=== PATIENT | female | born 1950 | race Caucasian/White ===

== ENCOUNTER 2022-05-27 11:09 | Emergency (ER) | payer OTHER, SELFPAY ==
[2022-05-27 11:16] VITALS: BP 151/71; PULSE 75; RESP 18; TEMP 36.7; O2SAT 97
--- NOTE | 2022-05-27 11:41 | ED.GENADUL_ITS ---
Discharge Plan Disposition Patient Disposition: HOME Condition: Improving Discharge Details Clinical Impression: Left-sided Maciel's palsy ED Provider: Giuseppe Carrasco Home Meds and New Rx's Prescriptions: New clindamycin HCl 300 mg capsule 300 mg PO Q6H 7 Days Qty: 28 0RF valacyclovir 1 gram tablet 1,000 mg PO BID 7 Days Qty: 14 0RF bacitracin 500 unit/gram ointment 1 applic topical Q8H 7 Days Qty: 14 0RF Rx Instructions: To left peroiorbital prednisone 10 mg tablet 10 mg PO DAILY Qty: 49 0RF Rx Instructions: 30 mg twice a day for 3 days, then 20 mg twice a day for 3 days, then 10 mg twice a day for 3 days, then 10 mg daily for 3 days and stop. Discharge Instructions Instructions: Maciel Palsy (ED) Additional Instructions: Please follow-up with your regular doctor in [place]. Please take the medications as prescribed. May use eye shield at night for comfort. May use lubricating drops to left eye. Return to the ER for any acute concerns while in the area. Medical Decision Making 72-year-old female who is visiting family in the town [facility]. She notes having an infection of the left preseptal periorbital region in January which was treated successfully with clindamycin. She noted yesterday recurrent left eyelid erythema for which she started Polytrim. This morning she felt her face was swollen and noticed forehead she and lip drooping. She did not have a headache. No difficulty with speech or gait. On exam patient has a Maciel's palsy. This is consistent with peripheral nerve involvement. Cannot rule out slight left periorbital cellulitis. Discussed with her that we will treat with valacyclovir and prednisone. She may use bacitracin to the left periorbital area and I will place her on a course of cli ndamycin given her concern for underlying cellulitis. She will follow-up with her regular doctor for recheck in [place]. HPI General Mode of arrival: ambulatory . Date/Time Provider Initiated Documentation: 05/27/22 11:21 . Limitations to Documentation: no limitations . Information obtained by: patient . History of Present Illness 72 year old F presents to the emergency department with the chief complaint of Left facial droop and inability to close the eye, described as moderate, Quality is described as dull, and is localized to the face, eyes and left. Patient reports no radiation. Patient started experiencing this day(s) and it has been constant. No relieving factors improve symptom(s), No exacerbating factors reported . Patient notes denies cough, headaches, shortness of breath, syncope and weakness. Patient did receive the following treatments prior to arrival, other (Topical Polytrim) Related Data Home Medications Medication Instructions Recorded Confirmed bacitracin 500 unit/gram topical 1 applic topical Q8H 7 days #14 05/27/22 ointment grams clindamycin HCl 300 mg capsule 300 mg PO Q6H 7 days #28 caps 05/27/22 prednisone 10 mg tablet 10 mg PO DAILY #49 tabs 05/27/22 valacyclovir 1 gram tablet 1,000 mg PO BID 7 days #14 tabs 05/27/22 Previous Rx's Medication Instructions Recorded bacitracin 500 unit/gram topical 1 applic topical Q8H 7 days #14 05/27/22 ointment grams clindamycin HCl 300 mg capsule 300 mg PO Q6H 7 days #28 caps 05/27/22 prednisone 10 mg tablet 10 mg PO DAILY #49 tabs 05/27/22 valacyclovir 1 gram tablet 1,000 mg PO BID 7 days #14 tabs 05/27/22 Allergies Allergy/AdvReac Type Severity Reaction Status Date / Time ampicillin Allergy Other (See Unverified 05/27/22 11:20 Comment) General Stated Complaint: Cellulitis CORY: 3 Review of Systems Narrative: Reports previous preseptal infection on the left. Treated with clindamycin successfully. No fever. No notes or numbness of the extremities. No difficulty with speech. 7 systems were reviewed and otherwise negative. Patient lives in [facility] All Active Problems (Updated 05/27/22 @ 11:44 by Giuseppe Carrasco MD) Left-sided Maciel's palsy (Acute) Social History Smoking/Tobacco Use Status: Former Tobacco Use Smoking risk assessment performed?: Yes Drug use: Never Substance use type: does not use Do you feel safe at home: Yes Do you feel safe in your relationship?: Yes Exam Narrative Exam Narrative: GEN: awake, alert, oriented 3. Pleasant, well groomed, interactive. HEAD: Normocephalic, atraumatic ENT: Mucous membranes moist, oropharynx unremarkable, External ear exam unremarkable EYES: PERRL, EOMI NECK: Full ROM, no NATO, no menigismus CHEST/RESP: Nontender, clear to auscultation bilateral, no wheeze/rhonchi/rales CARDIOVASCULAR: RRR, no murmur, rub shukri. 2+ Rad pulse bilateral ABDOMEN: Soft, nontender, no mass. +Bowel sounds EXT: Full ROM, no edema, no rash Neuro: Left facial nerve palsy with forehead involvement, left ptosis, otherwise grossly normal neurologic exam, conversant, interactive. Romberg negative. No satelliting Psych: Speech fluent, thoughts congruent, affect normal Course Vital Signs Vital signs: Vital Signs Temperature 36.7 C 05/27/22 11:16 Pulse 75 05/27/22 11:16 Respiratory Rate 18 05/27/22 11:16 Blood Pressure 151/71 H 05/27/22 11:16 Pulse Oximetry 97 05/27/22 11:16 Temperature 36.7 C 05/27/22 11:16 Temperature Source Oral 05/27/22 11:16 Pulse 75 05/27/22 11:16 Respiratory Rate 18 05/27/22 11:16 Respiratory Effort Non-Labored 05/27/22 11:21 Blood Pressure 151/71 H 05/27/22 11:16 Blood Pressure Position Sitting 05/27/22 11:16 Pulse Oximetry 97 05/27/22 11:16 Oxygen Delivery Method Room Air 05/27/22 11:16 Oxygen Flow Rate 0 05/27/22 11:16 PAWSS Have you Been Recently Intoxicated or Drunk Within the Last 30 days?: No Have you Ever Experienced Previous Episodes of Alcohol Withdrawal?: No Have you ever Experienced Withdrawal Seizures?: No Have you ever Experienced Delirium Tremens(DT)s?: No Have you ever undergone Alcohol Rehabilitation Treatment (i.e, inpt ot outpatient treatment programs)?: No Have you ever Experienced Blackouts?: No Have you ever Combined Alcohol with other Downers within the last 90 days?: No Have you ever Combined Alcohol with any other Substance of Abuse during the last 90 days?: No Positive Blood Alcohol level on Presentation? [PCS.BAL]: No Evidence of Increased Autonomic Activity (i.e. HR>120, tremor, sweating, agitation, nausea)?: No Result: 0
[2022-05-27] MEDS: valACYclovir 1,000 MG TAB 1000 MG PO (11:57)
[2022-05-27] MEDS: predniSONE 20 MG TAB 60 MG PO (12:02)
== END 2022-05-27 12:02 | disposition home or self-care (01) ==
LOC: ER 12:09
PROVIDERS: Emergency Provider Emergency Medicine
DX: G51.0 Bell's palsy (principal); L53.9 Erythematous condition, unspecified; Z87.891 Personal history of nicotine dependence
CPT/HCPCS: 99283; 99284; J7512